=== PATIENT | male | born 1980 | race Caucasian/White ===

== ENCOUNTER → 2022-09-22 | Emergency (ER) | payer OTHER ==
[~2022-09-22] VITALS: Ht 180.3 cm; Wt 99.8 kg
[~2022-09-22] MED LIST: FAMOTIDINE (20 MG) 20 MG TABLET ONE; FAMOTIDINE (20 MG) 20 MG TABLET PO ONE; LORAZEPAM 1 MG TABLET ONE; LORAZEPAM 1 MG TABLET PO ONE; ONDA4TAB5 PO; ONDANSETRON 4 MG TAB.RAPDIS ONE; ONDANSETRON 4 MG TAB.RAPDIS SL ONE
[2022-09-22 08:49] VITALS: BP 120/64
== END | disposition home or self-care (01) ==
LOC: ER 07:40
DX: R11.2 Nausea with vomiting, unspecified (principal); T50.7X5A Adverse effect of analeptics and opioid receptor antagonists, initial encounter; F17.200 Nicotine dependence, unspecified, uncomplicated; Y92.89 Other specified places as the place of occurrence of the external cause; Z60.2 Problems related to living alone
CPT/HCPCS: 99284; 93005; Q0162